=== PATIENT | female | born 1945 | race Caucasian/White ===

== ENCOUNTER → 2016-08-17 | Outpatient (CLI) | payer BC ==
[~2016-08-17] MED LIST: ACETAMINOPHEN325 MG PO; ASPIRIN PO; ASPIRIN325 M1 PO; COATED ASPIRIN325 M1 PO; FERRO-TIME325 MG PO; HYDROCODON-ACE1 EAC5 PO; IBUPROFEN PO; LISINOPRIL PO; LISINOPRIL-HCTZ1 T14 PO; MELOXICAM15 MG PO; TYL325 PO
--- NOTE | ~2016-08-17 | CO ---
Unit #: [id number] #: [id number] Patient: TELLY TURK I [id number] [facility]. [place], [place] [address] [id number] O MR#: [id number] NAME: TELLY TURK ROOM: Age: 71 Sex: F Admission Date: 08/17/2016 : 1945 Attending Physician: Bogdan Alexandre M.D. Primary Care Physician: Erick Tavarez M.D. Consultation Date: 08/17/2016 CONSULTATION REPORT REASON FOR CONSULTATION Preoperative evaluation. HISTORY OF PRESENT ILLNESS The patient is a 71-year-old female with past medical history of hypertension, prediabetes, GERD who is seen in the preoperative evaluation area for the above. The patient states that she started having right hip pain about two years ago. The pain was initially in the groin and exacerbated by movement. She states that she has had injections in the past. She is scheduled for right total hip arthroplasty on August 31, 2016. She states that with persistent activity the hip "locks up" interfering with activities of daily living. Regarding the patient's chronic medical condition, she has been taking her medications as prescribed. She states that she is "prediabetic." She is not on any medication. She does not routinely check her blood sugars. PAST MEDICAL HISTORY 1. Admission to [facility], March 02 through March 03, 2013, for right total shoulder surgery. 2. Hypertension. 3. Prediabetes, not on any medication and the patient does not routinely check blood sugars. 4. Anxiety with history of panic attacks. The last panic attack was more than 30 years ago. 5. Osteoarthritis. 6. GERD. PAST SURGICAL HISTORY 1. Cholecystectomy. 2. Appendectomy. 3. Hysterectomy. 4. Hemorrhoidectomy. 5. EGD. 6. Bilateral total knee replacement. 7. Right shoulder surgery. 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 There is no tobacco or alcohol use. She walks without assistance. FAMILY HISTORY Unit #: [id number] #: [id number] Patient: TELLY TURK I Notable for her mother having congestive heart failure. Her dad had dementia, coronary artery disease, and diabetes. ALLERGIES Tetracycline, formaldehyde. HOME MEDICATIONS 1. Lisinopril/hydrochlorothiazide 20/12.5 daily. 2. Meloxicam 15 mg daily. 3. Acetaminophen 650 mg q.4 hours p.r.n. REVIEW OF SYSTEMS A complete review of systems is negative except as indicated in the HPI. The patient states that she was told that she was "difficult to wake up" following surgery. Also, she had low blood pressure postoperatively. However, she states that she was able to go to a "regular" floor following the surgery. She denies requiring prolonged intubation. She states that she was told to get a sleep study in the past; however, she has never had a sleep study. She is not sure if she snores. She states that she wakes up feeling refreshed. She denies any chest pain, no cough or cold symptoms, no palpitations, no bowel or bladder problems. She had a stress test more than 30 years ago. She has never had a cardiac catheterization. She does not see a blast furnace helper. She denies any change in her weight. DIAGNOSTIC STUDIES LABORATORY: Complete blood count is completely normal. INR is 1. Comprehensive metabolic panel notable for glucose of 130. Urinalysis is essentially negative. CARDIOVASCULAR: EKG shows sinus tachycardia with premature atrial complex, rate of 110 beats per minute. PHYSICAL EXAMINATION VITAL SIGNS: Temperature is 98.4, pulse 93, respirations 16, blood pressure 129/78, oxygen saturation is 96% on room air. GENERAL: The patient is a very pleasant female who is awake and alert in no acute distress. HEENT: The head is atraumatic. Mucous membranes are moist. NECK: Supple. Trachea is midline. CARDIOVASCULAR: Regular rate and rhythm. LUNGS: Clear to auscultation bilaterally with no increased work of breathing. ABDOMEN: Soft, nontender with bowel sounds present in all four quadrants. EXTREMITIES: Nontender with no pedal edema. NEUROLOGIC: The patient is awake and alert. She follows commands. PSYCHIATRIC: Mood and affect are normal. The patient is cooperative. SKIN: Skin of examined areas is warm and dry. ASSESSMENT The patient is a 71-year-old female with: 1. Preoperative evaluation for right total hip arthroplasty. 2. Hypertension. 3. "Prediabetes." 4. Gastroesophageal reflux disease. 5. Anxiety with panic attack more than 30 years ago. 6. Osteoarthritis. 7. Increased risk of obstructive sleep apnea. 8. Obesity with a body mass index of 40. Unit #: [id number] #: [id number] Patient: TELLY TURK I PLAN 1. Regarding preoperative evaluation, the patient's revised Daugherty Cardiac Risk Index is consistent with a 0.4% rate of cardiac , nonfatal myocardial infarction, nonfatal cardiac arrest based on the information available. 2. Regarding "prediabetes", I have ordered a hemoglobin A1c. The patient may need low-dose sliding scale insulin with Accu-Cheks postoperatively. 3. Regarding increased risk of obstructive sleep apnea, I have ordered the obstructive sleep apnea protocol postoperatively. Thank you very much for the consultation. Dictated by... Jase Frias TD: 08/17/2016 10:59 JOB #: [id number] CONSULTATION REPORT Page 1 of 1 X Kellie Gregory MD X CONSULTATION REPORT
--- NOTE | ~2016-08-17 | CR63 ---
[facility] A Service of [facility] & [facility] RADIOLOGY TEXT RESULTS PATIENT: TELLY TURK I LOCATION: [facility] : 43 UNIT #: [id number] AGE: [address]: Bogdan Alexandre MD SEX: F ORDER DR: [id number] [facility] [address] [place], [place] [address] [id number] O MR#: [id number] Acc #: [id number] NAME: TELLY TURK : 1945 SEX: F STUDY DATE/TIME: 08/17/2016 9:30 UNIT: [facility] ROOM: STUDY DESCRIPTION: CR Chest 2 View Attending Physician: Bogdan Alexandre M.D. Ordering Physician: Bogdan Alexandre M.D. Primary Care Physician: Erick Tavarez M.D. MEDICAL IMAGING REPORT This report is preliminary unless electronic signature is present EXAM Chest 08/17/2016 HISTORY 71-year-old woman. Preop right total hip arthroplasty. Osteoarthritis right hip. COMPARISON Chest 08/29/2012. FINDINGS Two-view chest demonstrates normal stable heart size. Aorta is mildly ectatic and stable. Bilateral lungs are expanded and clear. Right humeral prosthesis noted. IMPRESSION Stable chest with no acute finding. Dictated by... Zay Arias M.D. THIS IS AN ELECTRONICALLY VERIFIED REPORT Zay Arias M.D. at 08/17/2016 12:39 PM GALDINO/yamil TD: 08/17/2016 10:32 JOB #: [id number] MEDICAL IMAGING REPORT Page 1 of 1 COPY
--- NOTE | ~2016-08-17 | EKG ---
PATIENT: TELLY TURK UNIT #: [id number] Ventricular Rate: 110 BPM Atrial Rate: 110 BPM P-R Interval: 156 ms QRS Duration: 82 ms Q-T Interval: 336 ms QTC Calculation(Bezet): 454 ms P [place]: 20 degrees Calculated R [place]: 46 degrees Calculated T [place]: 22 degrees Diagnosis Line: Sinus tachycardia with Premature atrial complexes Diagnosis Line: with Aberrant conduction Diagnosis Line: Nonspecific ST abnormality Diagnosis Line: Abnormal ECG Diagnosis Line: No previous ECGs available Diagnosis Line: Confirmed by STEPHON LEAHY MD ([id number]) on Diagnosis Line: 08/19/2016 8:43:46 AM INTERPRETING MD: TOSIN CHOW
[2016-08-17 08:39] LABS: HEMATOCRIT 42.4 % (35.0-45.0); HEMOGLOBIN 13.8 gm/dL (12.0-16.0); MEAN CELL VOLUME 93.6 FL (83-96); MEAN CORPUSCULAR HEMOGLOBIN 30.3 PG (28-34); MEAN CORPUSCULAR HGB CONC 32.4 g/dL (30-36); MEAN PLATELET VOLUME 8.4 FL (6.5-11.5); RED BLOOD COUNT 4.53 X10e (3.90-5.30); RED CELL DISTRIBUTION WIDTH 12.9 % (11.0-15.5); WHITE BLOOD COUNT 5.5 X10e3 (4.0-10.5)
[2016-08-17 08:54] LABS: PROTHROMBIN TIME (PATIENT) 10.7 SECONDS (9.6-11.5)
[2016-08-17 09:19] LABS: ALBUMIN SERUM 3.9 g/dL (3.5-5.0); CREATININE SERUM 0.4 mg/dL (0.6-1.4); GLOM FILT RATE Estimated 104.1 mL/min (>60); POTASSIUM 3.9 mmol/L (3.5-5.1); PROTEIN TOTAL SERUM 6.5 g/dL (6.0-8.3)
[2016-08-17 09:20] LABS: URINE APPEARANCE CLEAR; URINE BILIRUBIN NEG (NEG); URINE BLOOD NEG (NEG); URINE COLOR YELLOW; URINE GLUCOSE NEG (NEG); URINE KETONE NEG (NEG); URINE LEUKOCYTE ESTERASE NEG (NEG); URINE NITRATE NEG (NEG); URINE PH 5.5 (5-8); URINE PROTEIN NEG (NEG); URINE SPECIFIC GRAVITY 1.019 (1.003-1.035)
[2016-08-17 09:23] LABS: CULTURE INDICATED? NO; URINE SOURCE CLEAN CATCH
== END | disposition home or self-care (01) ==
LOC: CAMB 07:53
PROVIDERS: Orthopaedic Surgery
DX: Z01.818 Encounter for other preprocedural examination (principal); M16.11 Unilateral primary osteoarthritis, right hip; I10 Essential (primary) hypertension; M06.9 Rheumatoid arthritis, unspecified; Z79.82 Long term (current) use of aspirin; Z96.653 Presence of artificial knee joint, bilateral
CPT/HCPCS: 36415; 71020; 80053; 81003; 83036; 85027; 85610; 86850; 86900; 86901; 87070; 93005

== ENCOUNTER 2016-08-31 06:05 | Inpatient (IN) | payer BC ==
--- NOTE | ~2016-08-31 | OR ---
Unit #: [id number] #: [id number] Patient: TELLY TURK I [id number] [facility]. [place], [place] [address] [id number] MR#: [id number] NAME: TELLY TURK I. ROOM: [facility] Date of Procedure: 08/31/2016 Admission Date: 08/31/2016 Surgeon: Bogdan Alexandre M.D. : 1945 Attending Physician: Bogdan Alexandre M.D. Referring Physician: Bogdan Alexandre M.D. Primary Care Physician: Erick Tavarez M.D. OPERATIVE REPORT PREOPERATIVE DIAGNOSIS Primary localized osteoarthritis of the right hip. POSTOPERATIVE DIAGNOSIS Primary localized osteoarthritis of the right hip. PROCEDURE PERFORMED Right total hip. ASSISTANTS Francisco Morrison and Hong Anguiano. ANESTHESIA General. ESTIMATED BLOOD LOSS 450. INDICATIONS FOR PROCEDURE This is a 71-year-old, who has severely painful right hip. She has had pain for months. It has gotten progressively worse to the point now where she has difficulty walking or standing. Her x-rays show she has [id number] with severe arthritis and periarticular osteophytes. DESCRIPTION OF PROCEDURE The patient was brought to the holding room, given 2 g of Ancef. This will be continued postop, but discontinued within 23 hours from the start time of surgery. She was then given a general anesthetic in the operating room and placed in decubitus position with the right side up. The right hip was prepped and draped in a sterile fashion. Modified Aufranc incision was mapped out and made. The subcutaneous dissected away and the fascia split longitudinally. Short rotators were taken down with the cautery unit. The posterior hip capsule was identified and this was T'd open. The hip was dislocated posteriorly and the neck osteotomy performed. The head fragment removed. The femur retracted anteriorly. The labrum debrided and then reamed. The acetabulum was reamed up to a 51. A 52 mm [place] Gription cup was inserted in 40 degrees of abduction and 20 degrees of forward flexion. A neutral 36 liner was placed in the cup. This was a trial liner. The piriformis sinus was cleaned out with a rongeur and a knife. Starter reamer passed down and then the rigid reamers were used up to a size 6. Broaches were used up to a size 6 even with a high offset neck. The leg was too long, so we dropped down to a Unit #: [id number] #: [id number] Patient: TELLY TURK I size 5 broach seeding it deeper into the femur. It was still quite stable and then the leg lengths were appropriate. So, a trial reduction was carried out. The hip was stable in all directions and leg lengths appeared to be appropriate. We then removed all the trials. The real liner was impacted into the cup. The periacetabular injection of ropivacaine was used. The femur was then impacted in about 15 degrees of anteversion. This was a size 5 high offset neck. The patient then had the trial reduction carried out with a -2, 36 head. Once again, leg lengths were appropriate. So, the -2, 36 head was opened and applied. The hip was reduced. The rest of ropivacaine mixture was injected. We irrigated with Betadine and bacitracin and then closed the capsule using 0 Vicryl and the fascia was closed with a running #1 Stratafix suture. The subcutaneous was closed with 0 and 2-0 Vicryl and dunia in the skin. conventions assistant, Francisco Morrison was present throughout the entire case. Dictated by... Jase Benjamin/april TD: 09/01/2016 04:39 JOB #: [id number] OPERATIVE REPORT Page 1 of 1 X Bogdan Alexandre MD PROCEDURE OPERATIVE NOTE
--- NOTE | ~2016-08-31 | DS ---
Unit #: [id number] #: [id number] Patient: TELLY TURK I [id number] [address] [place], [place] [address] [id number] MR#: [id number] NAME: TELLY TURK I. ROOM: [facility] Age: 71 Sex: F Admission Date: 08/31/2016 : 1945 Discharge Date: 09/01/2016 Attending Physician: Bogdan Alexandre M.D. Referring Physician: Bogdan Alexandre M.D. Primary Care Physician: Erick Tavarez M.D. DISCHARGE SUMMARY ADMITTING DIAGNOSIS Primary localized osteoarthritis of the right hip. DISCHARGE DIAGNOSIS Primary localized osteoarthritis of the right hip. PROCEDURES IN THE HOSPITAL Right total hip. HOSPITAL COURSE The patient was admitted on 08/31, taken to the operating room where she underwent a right total hip replacement. Postoperatively, she has done well. She is up to a chair. She is ambulating short distances. Her neurovascular exam is intact. Her hemoglobin today is 11.3. She is on aspirin 325 b.i.d. for DVT prophylaxis. It is felt she can be discharged home after her second therapy today. She is on Nadeau 10/325 for pain. She will have her dunia removed 2 weeks postop. She is weightbearing as tolerated. She is to follow hip precautions. She will follow up in the office in about 5 to 6 weeks. Dictated by... Jase Benjamin/mikaela TD: 09/02/2016 10:22 JOB #: [id number] DISCHARGE SUMMARY Page 1 of 1 X Bogdan Alexandre MD X DISCHARGE SUMMARY
--- NOTE | ~2016-08-31 | CR145 ---
[facility] A Service of [facility] & [facility] RADIOLOGY TEXT RESULTS PATIENT: TELLY TURK I LOCATION: [facility] [id number] : [birth year] UNIT #: [id number] AGE: [address]: Bogdan Alexandre MD SEX: F ORDER DR: [id number] [facility] [address] [facility] [place], [place] [address] [id number] MR#: [id number] Acc #: [id number] NAME: TELLY TURK I. : 1945 SEX: F STUDY DATE/TIME: 08/31/2016 9:55 UNIT: [facility] ROOM: [facility] STUDY DESCRIPTION: CR Hip 1 View Rt Attending Physician: Bogdan Alexandre M.D. Referring Physician: Bogdan Alexandre M.D. Ordering Physician: Bogdan Alexandre M.D. Primary Care Physician: Erick Tavarez M.D. MEDICAL IMAGING REPORT This report is preliminary unless electronic signature is present EXAM Right hip HISTORY Status post hip replacement, evaluate prosthesis FINDINGS An AP view of the right hip was obtained. There is a right total hip prosthesis present. There is no fracture or dislocation. IMPRESSION Status post right total hip replacement. Dictated by... Dale Peralta M.D. THIS IS AN ELECTRONICALLY VERIFIED REPORT Dale Peralta M.D. at 08/31/2016 4:31 PM CATIE/perla TD: 08/31/2016 12:21 JOB #: [id number] MEDICAL IMAGING REPORT Page 1 of 1 COPY
[~2016-08-31 06:05] MED LIST changes: -COATED ASPIRIN325 M1 PO; -TYL325 PO
[2016-08-31 06:47] LABS: PROTHROMBIN TIME (PATIENT) 10.7 SECONDS (9.6-11.5)
[2016-09-01 03:32] LABS: HEMATOCRIT 34.6 % (35.0-45.0); HEMOGLOBIN 11.3 gm/dL (12.0-16.0)
[2016-09-01 03:57] LABS: CALCIUM SERUM 8.1 mg/dL (8.4-10.2); CREATININE SERUM 0.5 mg/dL (0.6-1.4); GLOM FILT RATE Estimated 96.7 mL/min (>60); MAGNESIUM 1.7 mg/dL (1.6-3.0)
[2016-09-01 10:05] LABS: TMH HEPATITIS B SURFACE AG -JH Negative (Negative); TMH HEPATITIS C AB - JH Negative (Negative)
[2016-09-01] MEDS ORDERED: HYDROCODON-ACE1 EAC5 PO (11:37)
[2016-09-01] MEDS ORDERED: TYL325 PO (11:38)
[2016-09-01] MEDS ORDERED: COATED ASPIRIN325 M1 PO (11:39)
== END 2016-09-01 16:13 | disposition home health service (06) | DRG 470 ==
LOC: CSUR 06:05 → CPACUOF 06:45 → C4C 06:45 → CSUR 08:00 → CPACUOF 09:38 → CSUR 09:38 → C4C 10:51 → CPACUOF 10:51 → C4C 09-01 16:13
PROVIDERS: Nurse Practitioner; Orthopaedic Surgery
PROC: 0SR902Z Replacement of Right Hip Joint with Metal on Polyethylene Synthetic Substitute, Open Approach (ICD-10-PCS; principal; 2016-08-31 08:00)
DX: M16.11 Unilateral primary osteoarthritis, right hip (principal); Z68.41 Body mass index [BMI] 40.0-44.9, adult; M06.9 Rheumatoid arthritis, unspecified; I10 Essential (primary) hypertension; Z96.653 Presence of artificial knee joint, bilateral; Z96.611 Presence of right artificial shoulder joint; Z90.49 Acquired absence of other specified parts of digestive tract; Z90.710 Acquired absence of both cervix and uterus; E66.9 Obesity, unspecified; K21.9 Gastro-esophageal reflux disease without esophagitis; F41.9 Anxiety disorder, unspecified; R73.03 Prediabetes
CPT/HCPCS: 73501; 80048; 82947; 83735; 85014; 85018; 85610; 86803; 87340; 87806; 88304; 88311; 94010; 94760; 94761; 97110; 97116; 97161; 97530; 97535; C1776; G8978-GP; G8979-GP; G8980-GP; G8987-GO; G8988-GO; G8989-GO; J0131; J0171; J0690; J0735; J1100; J1170; J1815; J1885; J2250; J2405; J2795; J3010